=== PATIENT | female | born 1995 | race American Indian/Alaskan Native ===

== ENCOUNTER 2018-12-07 10:16 | Emergency (ER) | payer SELFPAY ==
[2018-12-07 10:22] VITALS: BP 146/76
[2018-12-07] MEDS ORDERED: ULTRAM PO ONE (11:32)
--- NOTE | 2018-12-07 11:39 | Emergency Department Report ---
ED General Adult HPI - General Chief complaint: Sore Throat Stated complaint: FLU SYMPTOMS Time Seen by Provider: 12/07/18 11:18 Source: patient Mode of arrival: Ambulatory Limitations: No Limitations - History of Present Illness Initial comments: Patient complains of a sore throat 2 days this may worse with eating. Patient denies sick contacts. -: Sudden Location: mouth Radiation: non-radiation Severity scale (0 -10): 6 Quality: burning, aching Consistency: constant Improves with: cold therapy Worsens with: eating Associated Symptoms: denies other symptoms Treatments Prior to Arrival: none - Related Data Previous Rx's Medication Instructions Recorded Last Taken Type Ibuprofen [Motrin] 800 mg PO Q8HR PRN #30 tablet 12/07/18 Unknown Rx Penicillin V Potassium 500 mg PO TID #30 tablet 12/07/18 Unknown Rx traMADol [Ultram] 50 mg PO Q6HR PRN #24 tablet 12/07/18 Unknown Rx Allergies Allergy/AdvReac Type Severity Reaction Status Date / Time No Known Allergies Allergy Verified 12/07/18 10:20 ED Review of Systems ROS: Stated complaint: FLU SYMPTOMS Other details as noted in HPI Constitutional: denies: chills, fever Eyes: denies: eye pain, eye discharge, vision change ENT: throat pain. denies: ear pain Respiratory: denies: cough, shortness of breath, wheezing Cardiovascular: denies: chest pain, palpitations Endocrine: no symptoms reported Gastrointestinal: denies: abdominal pain, nausea, diarrhea Genitourinary: denies: urgency, dysuria, discharge Musculoskeletal: denies: back pain, joint swelling, arthralgia Skin: denies: rash, lesions Neurological: denies: headache, weakness, paresthesias Psychiatric: denies: anxiety, depression Hematological/Lymphatic: denies: easy bleeding, easy bruising ED Past Medical Hx - Past Medical History Previous Medical History?: No - Surgical History Past Surgical History?: No - Social History Smoking Status: Never Smoker Substance Use Type: None - Medications Home Medications: Home Medications Medication Instructions Recorded Confirmed Last Taken Type Ibuprofen [Motrin] 800 mg PO Q8HR PRN #30 tablet 12/07/18 Unknown Rx Penicillin V Potassium 500 mg PO TID #30 tablet 12/07/18 Unknown Rx traMADol [Ultram] 50 mg PO Q6HR PRN #24 tablet 12/07/18 Unknown Rx ED Physical Exam - General Limitations: No Limitations General appearance: alert, in no apparent distress - Head Head exam: Present: atraumatic, normocephalic - Eye Eye exam: Present: normal appearance - ENT ENT exam: Present: mucous membranes moist, other (patient palatine tonsils are inflamed and erythematous with exudate) - Neck Neck exam: Present: normal inspection - Respiratory Respiratory exam: Present: normal lung sounds bilaterally. Absent: respiratory distress - Cardiovascular Cardiovascular Exam: Present: regular rate, normal rhythm. Absent: systolic murmur, diastolic murmur, rubs, gallop - GI/Abdominal GI/Abdominal exam: Present: soft, normal bowel sounds. Absent: distended, tenderness - Extremities Exam Extremities exam: Present: normal inspection - Back Exam Back exam: Present: normal inspection - Neurological Exam Neurological exam: Present: alert, oriented X3, CN II-XII intact. Absent: motor sensory deficit - Psychiatric Psychiatric exam: Present: normal affect, normal mood - Skin Skin exam: Present: warm, dry, intact, normal color. Absent: rash ED Course Vital Signs 12/07/18 10:21 Temperature 97.7 F Pulse Rate 84 Respiratory 18 Rate Blood Pressure 146/76 O2 Sat by Pulse 100 Oximetry ED Medical Decision Making - Medical Decision Making discussed plan of care with patient Critical care attestation.: If time is entered above; I have spent that time in minutes in the direct care of this critically ill patient, excluding procedure time. ED Disposition Clinical Impression: Pharyngitis Disposition: DC-01 TO HOME OR SELFCARE Is pt being admited?: No Does the pt Need Aspirin: No Condition: Stable Instructions: Pharyngitis (ED) Additional Instructions: return if worse Referrals: JOSE CHAN MD [Primary Care Provider] - 3-5 Days [facility] [Provider Group] - 3-5 Days [facility] [Provider Group] - 3-5 Days Time of Disposition: 11:38
== END 2018-12-07 12:01 | disposition home or self-care (01) ==
LOC: ED 10:16
DX: J02.9 Acute pharyngitis, unspecified (principal)
CPT/HCPCS: 99282

== ENCOUNTER 2021-10-15 18:07 | Emergency (ER) | payer SELFPAY ==
[2021-10-15] MEDS ORDERED: TETANUS,DIPH,PERTUSS(ACELL) VACCINE 0.5 ML SYRINGE IM ONE (19:21)
[2021-10-15] MEDS ORDERED: NEOMY 3.5 MG/BACIT 400 UNITS/POLY B 5000 UNITS/GM OINT PACKET TP ONE (19:21)
--- NOTE | 2021-10-15 19:42 | Emergency Department Report ---
- General Chief Complaint: Wound/Laceration Stated Complaint: CUT FINGER Time Seen by Provider: 10/15/21 18:52 Source: patient Mode of arrival: Ambulatory Limitations: No Limitations - History of Present Illness Initial Comments: Patient is a 26-year-old female presents emergency room with complaints of an injury to the right ring finger that occurred just prior to arrival. Patient reports that she was working on a [employer] door when her finger got stuck in a wheel of the door. She states that she was able to remove the finger she states upon her removal she noticed a cut and there was bleeding to the finger. She states that the bleeding improved after because administration she denies any numbness or weakness and is still able to move the finger. She denies any other injury. she is unsure of her last tetanus immunization. Patient denies medication allergies. - Related Data Previous Rx's Medication Instructions Recorded Last Taken Type Ibuprofen [Motrin] 800 mg PO Q8HR PRN #30 tablet 12/07/18 Unknown Rx Penicillin V Potassium 500 mg PO TID #30 tablet 12/07/18 Unknown Rx traMADoL [Ultram] 50 mg PO Q6HR PRN #24 tablet 12/07/18 Unknown Rx Mupirocin [Bactroban 2% OINT] 1 applic TP TID #1 tube 10/15/21 Unknown Rx Naproxen 375 mg PO BID PRN #14 tablet 10/15/21 Unknown Rx Allergies Allergy/AdvReac Type Severity Reaction Status Date / Time blueberry AdvReac Angioedema Verified 10/15/21 18:11 ED Review of Systems ROS: Stated complaint: CUT FINGER Other details as noted in HPI Comment: All other systems reviewed and negative ED Past Medical Hx - Social History Smoking Status: Never Smoker Substance Use Type: None - Medications Home Medications: Home Medications Medication Instructions Recorded Confirmed Last Taken Type Ibuprofen [Motrin] 800 mg PO Q8HR PRN #30 tablet 12/07/18 Unknown Rx Penicillin V Potassium 500 mg PO TID #30 tablet 12/07/18 Unknown Rx traMADoL [Ultram] 50 mg PO Q6HR PRN #24 tablet 12/07/18 Unknown Rx Mupirocin [Bactroban 2% OINT] 1 applic TP TID #1 tube 10/15/21 Unknown Rx Naproxen 375 mg PO BID PRN #14 tablet 10/15/21 Unknown Rx ED Physical Exam - General Limitations: No Limitations General appearance: alert, in no apparent distress - Head Head exam: Present: atraumatic, normocephalic - Eye Eye exam: Present: normal appearance - ENT ENT exam: Present: mucous membranes moist - Respiratory Respiratory exam: Absent: respiratory distress, accessory muscle use - Extremities Exam Extremities exam: Present: other (0.5 cm superficial skin tear present to the distal right ring finger, ttp to the distal right ring finger, FROM, no deformity, neurovascularly intact) - Neurological Exam Neurological exam: Present: alert, oriented X3 - Psychiatric Psychiatric exam: Present: normal affect, normal mood - Skin Skin exam: Present: warm, dry ED Course Vital Signs 10/15/21 20:36 Temperature 98.3 F Pulse Rate 72 Respiratory 12 Rate Blood Pressure 148/79 [Right] O2 Sat by Pulse 99 Oximetry ED Medical Decision Making - Radiology Data Radiology results: report reviewed Ordering Physician: LISA DOYLE Date of Service: 10/15/21 Procedure(s): XR hand 3+V RT Accession Number(s): [id number] cc: LISA DOYLE Fluoro Time In Minutes: RIGHT HAND 3 VIEWS INDICATION: right ring finger got caught in wheel of door. COMPARISON: None. IMPRESSION: No acute osseous or soft tissue abnormality. No significant DJD. Signer Name: Eulalio Loomis Jr, MD Signed: 10/15/2021 7:47 PM Workstation Name: [id number] Transcribed By: TTR Dictated By: EULALIO LOOMIS JR, MD Electronically Authenticated By: EULALIO LOOMIS JR, MD Signed Date/Time: 10/15/211946 DD/ 46 TD/TT: - Medical Decision Making Patient is a 26-year-old female presents emergency room with complaints of an injury to the right ring finger that occurred just prior to arrival. Patient reports that she was working on a [employer] door when her finger got stuck in a wheel of the door. She states that she was able to remove the finger she states upon her removal she noticed a cut and there was bleeding to the finger. She states that the bleeding improved after because administration she denies any numbness or weakness and is still able to move the finger. She denies any other injury. she is unsure of her last tetanus immunization. Patient denies medication allergies.VSS. on exam: 0.5 cm superficial skin tear present to the distal right ring finger, ttp to the distal right ring finger, FROM, no deformity, neurovascularly intact. XR right hand: IMPRESSION: No acute osseous or soft tissue abnormality. No significant DJD. Patient's tetanus is updated. Wound care performed by tech. Advised patient Please use medication as prescribed. Please keep area clean, dry, covered. Wash with antibacterial soap and water pat dry. Follow-up with your primary care doctor. Follow-up with orthopedic doctor symptoms not improving. Return to emergency room for any new or worsening symptoms. Critical care attestation.: If time is entered above; I have spent that time in minutes in the direct care of this critically ill patient, excluding procedure time. ED Disposition Clinical Impression: Crushing injury of ring finger, Skin tear Disposition: HOME / SELF CARE / HOMELESS Is pt being admited?: No Does the pt Need Aspirin: No Condition: Stable Instructions: Skin Tear, Crush Injury of the Hand, [id number] Additional Instructions: Please use medication as prescribed. Please keep area clean, dry, covered. Wash with antibacterial soap and water pat dry. Follow-up with your primary care doctor. Follow-up with orthopedic doctor symptoms not improving. Return to emergency room for any new or worsening symptoms. Prescriptions: Mupirocin [Bactroban 2% OINT] 1 applic TP TID #1 tube Naproxen 375 mg PO BID PRN #14 tablet PRN Reason: pain Referrals: PRIMARY MD JANNET [Primary Care Provider] - 3-5 Days CHARI HOLLINS MD [Staff Physician] - 3-5 Days Time of Disposition: 19:56 Print Language: LATVIAN
--- NOTE | 2021-10-15 19:52 | XRay Report ---
RIGHT HAND 3 VIEWS INDICATION: right ring finger got caught in wheel of door. COMPARISON: None. IMPRESSION: No acute osseous or soft tissue abnormality. No significant DJD. Signer Name: Eulalio Loomis Jr, MD Signed: 10/15/2021 7:47 PM Workstation Name: [id number]
[2021-10-15 20:37] VITALS: BP 148/79
== END 2021-10-15 20:39 | disposition home or self-care (01) ==
LOC: ED 18:07
DX: S61.215A Laceration without foreign body of left ring finger without damage to nail, initial encounter (principal); Z91.018 Allergy to other foods; Z79.899 Other long term (current) drug therapy; W23.0XXA Caught, crushed, jammed, or pinched between moving objects, initial encounter; Y93.89 Activity, other specified; Y92.89 Other specified places as the place of occurrence of the external cause; Y99.8 Other external cause status
CPT/HCPCS: 90471; 90715; 99283